=== PATIENT | male | born 1980 | race Caucasian/White ===

== ENCOUNTER 2020-03-17 19:44 | Emergency (ER) | payer BC, MEDICAID ==
[~2020-03-17] VITALS: Ht 175.3 cm; Wt 149.6 kg
[~2020-03-17 19:44] MED LIST: CITA20TA28 PO; LEVE750T6 PO
[2020-03-17 19:57] VITALS: BP 137/108
[2020-03-17] MEDS ORDERED: proparacaine 0.5% ophthalmic drops 15ml EACHEYE ONE (21:30)
[2020-03-17] MEDS ORDERED: POLOS EACHEYE (21:42)
== END 2020-03-17 21:53 | disposition home or self-care (01) ==
LOC: ER 19:45
DX: H10.31 Unspecified acute conjunctivitis, right eye (principal); Z86.69 Personal history of other diseases of the nervous system and sense organs; Z90.89 Acquired absence of other organs; Z79.899 Other long term (current) drug therapy
CPT/HCPCS: 99282; 99283